=== PATIENT | female | born 1940 | race Caucasian/White ===

== ENCOUNTER → 2017-05-03 | Outpatient (CLI) | payer OTHER, BC ==
[~2017-05-03] MED LIST: KETO0.5S33 OP; PRED1SUS3; TETRACYCLINE PO
== END | disposition home or self-care (01) ==
LOC: C.PAPS 11:50
PROVIDERS: ATTEND Obstetrics & Gynecology
DX: Z12.4 Encounter for screening for malignant neoplasm of cervix (principal)